=== PATIENT | male | born 1990 | race Caucasian/White ===

== ENCOUNTER 2018-05-07 23:33 | Emergency (ER) | payer BC, OTHER ==
[2018-05-07 23:39] VITALS: BP 129/79; PULSE 97; RESP 16; TEMP 98; O2SAT 100
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
== END 2018-05-08 00:25 | disposition home or self-care (01) ==
LOC: H.ER 23:33
DX: S02.2XXA Fracture of nasal bones, initial encounter for closed fracture (principal); Y04.0XXA Assault by unarmed brawl or fight, initial encounter; Y92.89 Other specified places as the place of occurrence of the external cause